=== PATIENT | female | born 1965 | race Caucasian/White ===

== ENCOUNTER 2018-03-17 09:55 | Inpatient (IN) | payer BC ==
[2018-03-17] MEDS ORDERED: HYDROMORPHONE HCL INJ/PF 2 MG/ML AMPULE IV ONE (10:10)
[2018-03-17] MEDS ORDERED: METOCLOPRAMIDE HCL INJ/PF 10 MG/2 ML SDV IV ONE (10:10)
--- NOTE | 2018-03-17 10:12 | ER Document Report ---
ED Medical Screen (RME) - General Chief Complaint: Abdominal Pain Stated Complaint: ABDOMINAL PAIN Time Seen by Provider: 03/17/18 10:08 Mode of Arrival: Ambulatory Information source: Patient Notes: 52-year-old female no previous abdominal surgeries presents with complaints of right lower quadrant abdominal pain that started this morning associated I have greeted and performed a rapid initial assessment of this patient. A comprehensive ED assessment and evaluation of the patient, analysis of test results and completion of the medical decision making process will be conducted by additional ED providers. PHYSICAL EXAMINATION: GENERAL: Well-appearing, well-nourished and in moderate acute distress. HEAD: Atraumatic, normocephalic. EYES: Pupils equal round extraocular movements intact, conjunctiva are normal. ENT: Nares patent NECK: Normal range of motion LUNGS: No respiratory distress Musculoskeletal: Normal range of motion NEUROLOGICAL: Normal speech, normal gait. PSYCH: Normal mood, normal affect. SKIN: Warm, Dry, normal turgor, no rashes or lesions noted. TRAVEL OUTSIDE OF THE [place] IN LAST 30 DAYS: No - Related Data Allergies/Adverse Reactions: No Known Allergies Allergy (Unverified 03/17/18 09:58) Physical Exam - Vital signs Vitals: Temp Pulse Resp BP Pulse Ox 97.9 F 74 16 134/70 H 99 03/17/18 10:03/17/18 10:03/17/18 10:03/17/18 10:03/17/18 10:00 Course - Vital Signs Vital signs: Temp Pulse Resp BP Pulse Ox 97.9 F 74 16 134/70 H 99 03/17/18 10:03/17/18 10:03/17/18 10:00 03/17/18 10:00 03/17/18 10:00
[2018-03-17 10:43] LABS: ABSOLUTE EOSINOPHILS # (AUTO) 0.1 10^3/uL (0.0-0.6); ABSOLUTE LYMPHOCYTES (AUTO) 0.9 10^3/uL (0.5-4.7); ABSOLUTE MONOCYTES (AUTO) 0.3 10^3/uL (0.1-1.4); ABSOLUTE NEUT (AUTO) 9.3 10^3/uL (1.7-8.2); BASOPHILS % (AUTO) 0.3 % (0-2); EOSINOPHILS % (AUTO) 1.1 % (0-6); HEMATOCRIT 45.1 % (36.0-47.0); HEMOGLOBIN 15.4 g/dL (12.0-15.5); LYMPHOCYTES % (AUTO) 8.9 % (13-45); MEAN CORPUSCULAR HGB CONC 34.1 g/dL (32.0-36.0); MEAN CORPUSCULAR VOLUME 88 fl (80-97); MONOCYTES % (AUTO) 3.2 % (3-13); PLATELET COUNT 278 10^3/uL (150-450); RED BLOOD COUNT 5.12 10^6/uL (3.72-5.28); RED CELL DISTRIBUTION WIDTH 13.4 % (11.5-14.0); SEGMENTED NEUTROPHILS % (AUTO) 86.5 % (42-78); TOTAL CELLS COUNTED % (AUTO) 100 %; WHITE BLOOD COUNT 10.7 10^3/uL (4.0-10.5)
[2018-03-17 10:57] LABS: ALANINE AMINOTRANSFERASE 22 U/L (9-52); ALBUMIN 4.6 g/dL (3.5-5.0); ALKALINE PHOSPHATASE 80 U/L (38-126); ANION GAP 12 (5-19); ASPARTATE AMINO TRANSFERASE 18 U/L (14-36); BILIRUBIN,DIRECT 0.3 mg/dL (0.0-0.4); BILIRUBIN,TOTAL 0.8 mg/dL (0.2-1.3); BLOOD UREA NITROGEN 12 mg/dL (7-20); CALCIUM 10.1 mg/dL (8.4-10.2); CARBON DIOXIDE 27 mmol/L (22-30); CHLORIDE 103 mmol/L (98-107); GLUCOSE 112 mg/dL (75-110); POTASSIUM 4.2 mmol/L (3.6-5.0); SODIUM 142.3 mmol/L (137-145); TOTAL PROTEIN 7.7 g/dL (6.3-8.2)
[2018-03-17] MEDS ORDERED: NORMAL SALINE 1000 ML 1,000 ML IV ONE ×2 (11:20→11:50)
--- NOTE | 2018-03-17 13:23 | RADIOLOGY REPORT (SQ) ---
EXAM DESCRIPTION: CT ABD/PELVIS WITH IV ORAL COMPLETED DATE/TIME: 03/17/2018 1:01 pm REASON FOR STUDY: RLQ pain COMPARISON: None. TECHNIQUE: CT scan of the abdomen and pelvis performed using helical scanning technique with dynamic intravenous contrast injection. Patient drank oral contrast. Images reviewed with lung, soft tissue , and bone windows. Reconstructed coronal and sagittal MPR images reviewed. Delayed images for evalua tion of the urinary system also acquired. All images stored on PACS. All CT scanners at this facility use dose modulation, iterative reconstruction, and/or weight based d osing when appropriate to reduce radiation dose to as low as reasonably achievable (ALARA). [facility]: Dose Right [facility]: CareDose [facility]: Dose Right [facility]: Teradose 4D [facility]: BigEvidence CONTRAST TYPE AND DOSE: contrast/concentration: Isovue 370.00 mg/ml; Total Contrast Delivered: 57.0 ml; Total Saline Delivered: 65.0 ml RENAL FUNCTION: Creatinine 0.56 RADIATION DOSE: CT Rad equipment meets quality standard of care and radiation dose reduction techniq ues were employed. CTDIvol: 5.0 - 5.7 mGy. DLP: 546 mGy-cm.. LIMITATIONS: None. FINDINGS: In the right lower quadrant, the appendix is enlarged, filled with fluid, with surrounding inflammatory change worrisome for acute appendicitis. There is adjacent reactive edema and mild wal l thickening along the inferior tip of the cecum. These findings are best shown on coronal images 20 through 33, and axial images 64-71. No abscess. No adjacent free air or fluid. Report called to Esteban Araya in the emergency room. LOWER CHEST: No significant findings. No nodules or infiltrates. LIVER: Normal size. No masses. No dilated ducts. SPLEEN: Normal size. No focal lesions. PANCREAS: No masses. No significant calcifications. No adjacent inflammation or peripancreatic fluid collections. Pancreatic duct not dilated. GALLBLADDER: No identified stones by CT criteria. No inflammatory changes to suggest cholecystitis. ADRENAL GLANDS: Right adrenal gland unremarkable. 3 x 2 cm soft tissue density nodule in the left ad renal gland with washout of contrast enhancement on the delayed images. This is likely an adenoma. When the patient's acute condition resolves, noncontrast MRI of the adrenals is recommended for follo wup RIGHT KIDNEY AND URETER: No solid masses. No significant calcifications. No hydronephrosis or hyd roureter. LEFT KIDNEY AND URETER: No solid masses. No significant calcifications. No hydronephrosis or hydr oureter. AORTA AND VESSELS: No aneurysm. No dissection. Renal arteries, SMA, celiac without stenosis. RETROPERITONEUM: No retroperitoneal adenopathy, hemorrhage or masses. BOWEL AND PERITONEAL CAVITY: Patient drank oral contrast. No free intraperitoneal air or fluid. No CT evidence of bowel obstruction APPENDIX: As above PELVIS: No mass. No free fluid. Normal bladder. Normal size female pelvic organs ABDOMINAL WALL: No masses. No hernias. BONES: No significant or acute findings. OTHER: No other significant finding. IMPRESSION: Acute appendicitis TECHNICAL DOCUMENTATION: JOB ID: [id number] Quality ID # [id number]: Final reports with documentation of one or more dose reduction techniques (e.g., Au tomated exposure control, adjustment of the mA and/or kV according to patient size, use of iterative reconstruction technique) 2010 [employer]- All Rights Reserved Reading location - IP/workstation name: [email or web address]
[2018-03-17] MEDS ORDERED: CEFOXITIN INJ 1 GM VIAL IV ONE (13:26)
--- NOTE | 2018-03-17 13:29 | ER Document Report ---
ED General - General Chief Complaint: Abdominal Pain Stated Complaint: ABDOMINAL PAIN Time Seen by Provider: 03/17/18 10:08 Mode of Arrival: Ambulatory TRAVEL OUTSIDE OF THE [place] IN LAST 30 DAYS: No - HPI Patient complains to provider of: Right-sided abdominal pain Notes: Patient coming in for complaint of breath abdominal pain nausea vomiting and diarrhea ongoing for the last 2 days. Patient denies any fevers or chills. Patient upon my evaluation is resting comfortably denies trauma. Patient states no association with food however decreased appetite. - Related Data Allergies/Adverse Reactions: No Known Allergies Allergy (Unverified 03/17/18 09:58) Past Medical History - General Information source: Patient - Social History Smoking Status: Current Every Day Smoker Chew tobacco use (# tins/day): No Frequency of alcohol use: None Drug Abuse: None Family History: Reviewed & Not Pertinent Patient has suicidal ideation: No Patient has homicidal ideation: No Renal/ Medical History: Denies: Hx Peritoneal Dialysis Past Surgical History: Reports: Hx Orthopedic Surgery Review of Systems - Review of Systems Constitutional: No symptoms reported EENT: No symptoms reported Cardiovascular: No symptoms reported Respiratory: No symptoms reported Gastrointestinal: Abdominal pain Genitourinary: No symptoms reported Female Genitourinary: No symptoms reported Musculoskeletal: No symptoms reported Skin: No symptoms reported Hematologic/Lymphatic: No symptoms reported Neurological/Psychological: No symptoms reported Physical Exam - Vital signs Vitals: Temp Pulse Resp BP Pulse Ox 97.9 F 74 16 134/70 H 99 03/17/18 10:00 03/17/18 10:00 03/17/18 10:00 03/17/18 10:00 03/17/18 10:00 Interpretation: Normal - General General appearance: Appears well, Alert - HEENT Head: Normocephalic, Atraumatic Eyes: Normal Pupils: PERRL - Respiratory Respiratory status: No respiratory distress Chest status: Nontender Breath sounds: Normal Chest palpation: Normal - Cardiovascular Rhythm: Regular Heart sounds: Normal auscultation Murmur: No - Abdominal Inspection: Normal Distension: No distension Bowel sounds: Normal Tenderness: Tender - Right lower quadrant tenderness with guarding no rebound Organomegaly: No organomegaly - Back Back: Normal, Nontender - Extremities General upper extremity: Normal inspection, Nontender, Normal color, Normal ROM , Normal temperature General lower extremity: Normal inspection, Nontender, Normal color, Normal ROM , Normal temperature, Normal weight bearing. No: Kumar's sign - Neurological Neuro grossly intact: Yes Cognition: Normal Orientation: AAOx4 [place] Coma Scale Eye Opening: Spontaneous [place] Coma Scale Verbal: Oriented [place] Coma Scale Motor: Obeys Commands Starr Coma Scale Total: 15 Speech: Normal Motor strength normal: LUE, RUE, LLE, RLE Sensory: Normal - Psychological Associated symptoms: Normal affect, Normal mood - Skin Skin Temperature: Warm Skin Moisture: Dry Skin Color: Normal Course - Re-evaluation Re-evalutation: 03/17/18 14:24 CT scan she was given size. Patient was given antibiotics the patient was notified prior to the read by Dr. Espinoza load speaking with Dr. doran is artifactual to the CAT scan. Patient otherwise stable will be sent to the OR - Vital Signs Vital signs: Temp Pulse Resp BP Pulse Ox 97.9 F 74 16 134/70 H 99 03/17/18 10:00 03/17/18 10:00 03/17/18 10:00 03/17/18 10:00 03/17/18 10:00 - Laboratory Result Diagrams: 03/17/18 10:20 03/17/18 10:20 Laboratory results interpreted by me: 03/17/18 03/17/18 03/17/18 10:20 10:20 11:50 WBC 10.7 H Seg Neutrophils % 86.5 H Lymphocytes % 8.9 L Absolute Neutrophils 9.3 H Glucose 112 H Urine Protein 30 H Urine Urobilinogen 2.0 H Ur Leukocyte Esterase SMALL H Discharge - Discharge Clinical Impression: Acute appendicitis Qualifiers: Acute appendicitis type: with localized peritonitis Qualified Code(s): - Acute appendicitis with localized peritonitis Condition: Good Disposition: ADMITTED OBSERVATION Admitting Provider: Surgicalist - [facility] Unit Admitted: OR
[2018-03-17] MEDS ORDERED: PIPERACILLIN/TAZOBACTAM 4.5 GM VIAL IV ONE (13:30)
--- NOTE | 2018-03-17 14:00 | PDOC H&P ---
History of Present Illness Admission Date/PCP: 03/17/18 Patient complains of: RLQ pain x 24 hours History of Present Illness: HECTOR SHI is a 52 year old female healtrhy with a 24 hours hx of nausea first and recently RLW pain. A CT scan A/p was done this AM and it demonstrates an acute appendicitis. Mild leukocytosis noted. Past Surgical History Past Surgical History: Reports: Orthopedic Surgery Social History Smoking Status: Current Every Day Smoker Frequency of Alcohol Use: Rare Drugs: None Family History Family History: Reviewed & Not Pertinent Parental Family History Reviewed: No Children Family History Reviewed: No Sibling(s) Family History Reviewed.: No Medication/Allergy Allergies/Adverse Reactions: No Known Allergies Allergy (Unverified 03/17/18 09:58) Physical Exam Vital Signs: Temp Pulse Resp BP Pulse Ox 97.9 F 74 16 134/70 H 99 03/17/18 10:00 03/17/18 10:00 03/17/18 10:00 03/17/18 10:00 03/17/18 10:00 Intake & Output 03/16/18 03/17/18 03/18/18 06:59 06:59 06:59 Weight 52.8 kg Results Laboratory Results: 03/17/18 10:20 03/17/18 10:20 03/17/18 03/17/18 03/17/18 10:20 10:20 10:20 WBC 10.7 H RBC 5.12 Hgb 15.4 Hct 45.1 MCV 88 MCH 30.0 MCHC 34.1 RDW 13.4 Plt Count 278 Seg Neutrophils % 86.5 H Lymphocytes % 8.9 L Monocytes % 3.2 Eosinophils % 1.1 Basophils % 0.3 Absolute Neutrophils 9.3 H Absolute Lymphocytes 0.9 Absolute Monocytes 0.3 Absolute Eosinophils 0.1 Absolute Basophils 0.0 Sodium 142.3 Potassium 4.2 Chloride 103 Carbon Dioxide 27 Anion Gap 12 BUN 12 Creatinine 0.56 Est GFR ( Amer) > 60 Est GFR (Non-Af Amer) > 60 Glucose 112 H Calcium 10.1 Total Bilirubin 0.8 AST 18 ALT 22 Alkaline Phosphatase 80 Total Protein 7.7 Albumin 4.6 Lipase 42.8 Impressions: Abdomen/Pelvis CT 03/17/18 10:10 IMPRESSION: Acute appendicitis Assessment & Plan - Diagnosis (1) Acute appendicitis Qualifiers: Acute appendicitis type: with localized peritonitis - Plan Summary Plan Summary: Acute appendicitis, not ruptured on CT scan Mild leukocytosis (10.7) RLQ abdominal pain P/ Laparoscopic appendectomy, possible open Procedure, risks, benefits, complications explained to the patient, she understands all of those, her questions were answered, and she decided to proceed today.
[2018-03-17 14:12] LABS: APPEARANCE,URINE SLIGHTLY-CLOUDY; BILIRUBIN,URINE NEGATIVE (NEGATIVE); GLUCOSE, URINE NEGATIVE (NEGATIVE); KETONES,URINE NEGATIVE (NEGATIVE); LEUKOCYTE ESTERASE,URINE SMALL (NEGATIVE); NITRITE,URINE NEGATIVE (NEGATIVE); PROTEIN,URINE 30 mg/dL (NEGATIVE); URINE SPECIFIC GRAVITY 1.023
[2018-03-17 14:14] LABS: COLOR,URINE DARK YELLOW
[2018-03-17] MEDS ORDERED: GLYCOPYRROLATE 1 MG/5 ML SYRINGE ONE (14:29)
[2018-03-17] MEDS ORDERED: VECURONIUM BROMIDE INJ 10 MG VIAL IV ONE (14:29)
[2018-03-17] MEDS ORDERED: PHENYLEPHRINE HCL INJ/PF 10 MG/1 ML SDV ONE (14:29)
[2018-03-17] MEDS ORDERED: NEOSTIGMINE METHYLSULFATE 10 MG/10 ML VIAL ONE (14:29)
[2018-03-17] MEDS ORDERED: SUCCINYLCHOLINE CHLORIDE INJ 200 MG/10 ML VIAL ONE (14:29)
[2018-03-17] MEDS ORDERED: MIDAZOLAM 2 MG/2 ML INJ ONE ×2 (15:16→15:43)
[2018-03-17] MEDS ORDERED: FENTANYL CITRATE INJ/PF 100 MCG/2 ML AMPUL ONE (15:42)
[2018-03-17] MEDS ORDERED: LIDOCAINE 2% INJ-PF (20 MG/ML) 10 ML AMPUL ONE (15:42)
[2018-03-17] MEDS ORDERED: PROPOFOL INJ 200 MG/20 ML VIAL IV ONE (15:43)
[2018-03-17] MEDS ORDERED: ACETAMINOPHEN 0 MG/0 ML RTUPB IV ONE (15:43)
[2018-03-17] MEDS ORDERED: DEXAMETHASONE SOD PHOSPHATE INJ 4 MG/1 ML VIAL ONE (15:43)
[2018-03-17] MEDS ORDERED: BUPIVACAINE HCL 0.5%-EPI 1:200000 INJ/PF 30 ML VIAL ONE (15:47)
[2018-03-17] MEDS ORDERED: ONDANSETRON HCL INJ/PF 4 MG/2 ML SDV IV PRN (16:38)
[2018-03-17] MEDS ORDERED: PROMETHAZINE HCL INJ 25 MG/1 ML VIAL IV PRN ×3 (16:38→17:55)
[2018-03-17] MEDS ORDERED: DIPHENHYDRAMINE HCL 50 MG/ML VIAL IV PRN (16:38)
[2018-03-17] MEDS ORDERED: MORPHINE SULFATE 10 MG/ML INJ IV PRN (16:38)
[2018-03-17] MEDS ORDERED: MEPERIDINE HCL/PF INJ 25 MG/1 ML DISP.SYRIN IV PRN (16:38)
[2018-03-17] MEDS ORDERED: FENTANYL CITRATE INJ/PF 100 MCG/2 ML AMPUL IV PRN ×3 (16:38)
[2018-03-17] MEDS: FENTANYL CITRATE INJ/PF 100 MCG/2 ML AMPUL ONE ×2 (17:25→17:46)
--- NOTE | 2018-03-17 17:26 | Operative Report ---
Nonrecallable Operative Report DATE OF SURGERY: 03/17/18 PREOPERATIVE DIAGNOSIS: acute appendicitis POSTOPERATIVE DIAGNOSIS: acute, perforated, appendicitis OPERATION: laparoscopic appendectomy SURGEON: LUIS ALBERTO DUNCAN ANESTHESIA: GA - plus 20 mL 1% lidocaine with epineprine TISSUE REMOVED OR ALTERED: appendix, peritoneal fluid for culture COMPLICATIONS: none ESTIMATED BLOOD LOSS: < 5 mL INTRAOPERATIVE FINDINGS: acutely inflamed appendix with distal end perforation PROCEDURE: see dictation
[2018-03-17] MEDS ORDERED: NORMAL SALINE 1000 ML 1,000 ML IV PRN (17:52)
[2018-03-17] MEDS ORDERED: KETOROLAC TROMETHAMINE INJ/PF 30 MG/1 ML SDV ONE (18:04)
[2018-03-17] MEDS ORDERED: ACETAMINOPHEN 1,000 MG/100 ML RTUPB IV ONE (18:05)
--- NOTE | 2018-03-17 18:50 | OPERATIVE REPORT E ---
Operative Report NAME: HECTOR SHI : 1965 AGE: 52Y DATE OF SURGERY: 03/17/2018 ROOM: ED14 PREOPERATIVE DIAGNOSIS: ACUTE APPENDICITIS. POSTOPERATIVE DIAGNOSIS: ACUTE APPENDICITIS WITH PERFORATION. OPERATION: SURGEON: LUIS ALBERTO DUNCAN M.D. COMMUNICATIONS ANALYST: None. ESTIMATED BLOOD LOSS: Less than 5 mL. COMPLICATIONS: None. ANESTHESIA: General plus 30 mL of 1% Lidocaine with epinephrine. FLUIDS: 1000. URINE OUTPUT: Not available. DRAINS: A 15 Estonian Ayaz drain. INDICATION AND FINDINGS: This is a 52-year-old female smoker with a history of abdominal discomfort for 24 hours with intense nausea. Today, she developed right lower quadrant abdominal pain. A CT scan of the abdomen and pelvis was done, revealing acute appendicitis with fluid around the appendix. The decision was made to take the patient to surgery today to undergo laparoscopic appendectomy. DESCRIPTION OF PROCEDURE: The procedure was one in the operating room. Patient was placed in the supine position. General anesthesia was induced by endotracheal intubation. The abdomen was shaved, prepped and draped in the usual fashion. The incision was made just above the umbilicus; the skin was tented with towel clips, and a 5 mm port with Optiview adaptor and scope were inserted through the abdominal wall into the peritoneal cavity. CO2 pneumoperitoneum was established. Under direct visualization, a 5 mm port was inserted in the right upper quadrant under direct visualization. The 5 mm port in the umbilicus was removed and replaced with a 12 mm port. A 5 mm port was placed in the left lower quadrant of the abdomen. The patient was placed in a deep Trendelenburg position with the right side elevated. Evaluation of the right upper quadrant revealed the presence of a moderate amount of purulent fluid as well as fibrinous material. There was a moderate amount of fibrinous material surrounding the terminal ileum and the greater omentum. The appendix was identified to be edematous but not ruptured with a perforation at the distal end. The appendix was then dissected gently from the surrounding intra-abdominal organs, stretched upward. The base was evaluated and edema of the base was noted as well. At this point, the decision was made to amputate the appendix with a small sleeve of cecum. This was done with an endo-SPENSER laparoscopic stapler with a blue load. The appendix was then extracted from the peritoneal cavity with an Endo bag and the pneumoperitoneum was established. The staple line was examined and found to be intact. The peritoneal cavity was then irrigated with a total of 3 L of warm normal saline which was then fully aspirated. Under direct visualization, using a fascia closure device, the umbilical fascial defect was closed with a bnhbkl-so-nibeq 0 Vicryl suture. The suture was left untied and a 15 Estonian round Ayaz drain was inserted through the umbilical port, pulled outside the abdominal cavity through the left lower quadrant port site, and placed in the right lower quadrant. At this point, the trocar was released. The instruments were removed. The ports were extracted and the drain sutured to the skin using a 2-0 nylon suture. The umbilical defect was closed with the [id number]-km-vozlt 0 Vicryl suture previously placed. All skin incisions were closed with 4-0 Vicryl running subcuticular suture with Dermabond. The patient tolerated the procedure well, transferred to the recovery room, extubated, in satisfactory condition. DICTATING PHYSICIAN: LUIS ALBERTO DUNCAN M.D. [id number] Y#: [id number] ID: [id number] JOB#: [id number] ACCT: [id number] cc:LUIS ALBERTO DUNCAN M.D. > MTDD
--- NOTE | 2018-03-17 18:52 | EKG REPORT ---
SEVERITY:- NORMAL ECG - SINUS RHYTHM : Confirmed by: Satnam Haas MD 17-Mar-2018 18:51:36
[2018-03-17] MEDS: MORPHINE SULFATE 10 MG/ML INJ IV PRN ×2 (19:28→22:03)
[2018-03-17] MEDS: PIPERACILLIN SODIUM/TAZOBACTAM 4.5 GM in NORMAL SALINE 100 ML IV SCH (22:00)
[2018-03-18] MEDS: MORPHINE SULFATE 10 MG/ML INJ IV PRN ×2 (00:47→06:48)
[2018-03-18] MEDS: PIPERACILLIN SODIUM/TAZOBACTAM 4.5 GM in NORMAL SALINE 100 ML IV SCH ×4 (03:48→21:21)
[2018-03-18 07:39] LABS: HEMATOCRIT 34.1 % (36.0-47.0); MEAN CORPUSCULAR HEMOGLOBIN 30.4 pg (27.0-33.4); MEAN CORPUSCULAR VOLUME 89 fl (80-97); PLATELET COUNT 198 10^3/uL (150-450); RED BLOOD COUNT 3.82 10^6/uL (3.72-5.28); RED CELL DISTRIBUTION WIDTH 13.8 % (11.5-14.0); WHITE BLOOD COUNT 14.5 10^3/uL (4.0-10.5)
[2018-03-18 07:40] LABS: HEMOGLOBIN 11.6 g/dL (12.0-15.5)
[2018-03-18 07:50] LABS: ANION GAP 8 (5-19); BLOOD UREA NITROGEN 9 mg/dL (7-20); CALCIUM 8.4 mg/dL (8.4-10.2); CARBON DIOXIDE 26 mmol/L (22-30); CHLORIDE 108 mmol/L (98-107); GLUCOSE 117 mg/dL (75-110); POTASSIUM 4.1 mmol/L (3.6-5.0); SODIUM 141.5 mmol/L (137-145)
[2018-03-18] MEDS: ENOXAPARIN SODIUM INJ 40 MG/0.4 ML DISP.SYRIN SUBCUT SCH (09:26)
--- NOTE | 2018-03-18 10:43 | PDOC PROGRESS REPORT ---
Subjective Progress Note for:: 03/18/18 Subjective:: comfortable, tolerating po well Reason For Visit: ACUTE APPENDICITIS Physical Exam Vital Signs: Temp Pulse Resp BP Pulse Ox 97.8 F 54 L 20 98/51 L 100 03/18/18 07:29 03/18/18 07:29 03/18/18 07:29 03/18/18 07:29 03/18/18 07:29 Intake & Output 03/17/18 03/18/18 03/19/18 06:59 06:59 06:59 Intake Total 2825 Output Total 415 Balance 2410 Weight 52.8 kg General appearance: PRESENT: no acute distress Respiratory exam: PRESENT: clear to auscultation alfredo Cardiovascular exam: PRESENT: RRR GI/Abdominal exam: PRESENT: normal bowel sounds, soft, other - left lower quadrant Ayaz drain with serosanguinous fluid; all wounds are c/d/i Results Laboratory Results: 03/18/18 06:53 03/18/18 06:53 03/18/18 03/18/18 06:53 06:53 WBC 14.5 H RBC 3.82 Hgb 11.6 L D Hct 34.1 L MCV 89 MCH 30.4 MCHC 34.0 RDW 13.8 Plt Count 198 Sodium 141.5 Potassium 4.1 Chloride 108 H Carbon Dioxide 26 Anion Gap 8 BUN 9 Creatinine 0.56 Est GFR ( Amer) > 60 Est GFR (Non-Af Amer) > 60 Glucose 117 H Calcium 8.4 Impressions: Abdomen/Pelvis CT 03/17/18 10:10 IMPRESSION: Acute appendicitis Assessment & Plan - Diagnosis (1) Acute appendicitis Qualifiers: Acute appendicitis type: with localized peritonitis Is this a current diagnosis for this admission?: Yes (2) Acute perforated appendicitis Is this a current diagnosis for this admission?: Yes - Plan Summary Plan Summary: A/ POD#1 after laparoscopic appendectomy for perforated acute appendicitis VSS, AF WBC increased to 14K Cx of peritoneal fluid pending PE unremarkable patient tolerating po well P/ Heplock IVF Patient to remain hospitalized as her WBC has increased Antibiotics to be tailored once peritoneal fluid cx are available change to po pain medications
[2018-03-18] MEDS ORDERED: TRAMADOL HCL 50 MG TABLET PO PRN (10:44)
[2018-03-18] MEDS ORDERED: ACETAMINOPHEN 325 MG TABLET PO PRN (10:45)
[2018-03-18] MEDS: KETOROLAC TROMETHAMINE 10 MG TABLET PO PRN ×2 (11:54→17:49)
[2018-03-18 20:09] VITALS: BP 101/45
[2018-03-19] MEDS: KETOROLAC TROMETHAMINE 10 MG TABLET PO PRN ×2 (00:06→07:32)
[2018-03-19] MEDS: PIPERACILLIN SODIUM/TAZOBACTAM 4.5 GM in NORMAL SALINE 100 ML IV SCH ×2 (03:34→08:50)
[2018-03-19 06:15] LABS: HEMATOCRIT 32.5 % (36.0-47.0); MEAN CORPUSCULAR HEMOGLOBIN 30.2 pg (27.0-33.4); MEAN CORPUSCULAR HGB CONC 33.8 g/dL (32.0-36.0); MEAN CORPUSCULAR VOLUME 89 fl (80-97); PLATELET COUNT 185 10^3/uL (150-450); RED BLOOD COUNT 3.64 10^6/uL (3.72-5.28); RED CELL DISTRIBUTION WIDTH 13.5 % (11.5-14.0); WHITE BLOOD COUNT 8.8 10^3/uL (4.0-10.5)
[2018-03-19 06:34] LABS: ANION GAP 8 (5-19); BLOOD UREA NITROGEN 15 mg/dL (7-20); CALCIUM 8.2 mg/dL (8.4-10.2); CARBON DIOXIDE 27 mmol/L (22-30); CHLORIDE 107 mmol/L (98-107); GLUCOSE 91 mg/dL (75-110); POTASSIUM 3.6 mmol/L (3.6-5.0); SODIUM 141.8 mmol/L (137-145)
[2018-03-19] MEDS: ENOXAPARIN SODIUM INJ 40 MG/0.4 ML DISP.SYRIN SUBCUT SCH (08:51)
--- NOTE | 2018-03-19 09:10 | PDOC PROGRESS REPORT ---
Subjective Progress Note for:: 03/19/18 Subjective:: comfortable, bowel function returned, diet tolerated Reason For Visit: ACUTE APPENDICITIS Physical Exam Vital Signs: Temp Pulse Resp BP Pulse Ox 97.5 F 64 16 101/45 L 99 03/18/18 20:00 03/18/18 20:00 03/18/18 20:00 03/18/18 20:00 03/18/18 20:00 Intake & Output 03/18/18 03/19/18 03/20/18 06:59 06:59 06:59 Intake Total 2825 2610 Output Total 415 45 Balance 2410 2565 Weight 52.8 kg 57.062 kg General appearance: PRESENT: no acute distress Respiratory exam: PRESENT: clear to auscultation alfredo Cardiovascular exam: PRESENT: RRR GI/Abdominal exam: PRESENT: distended - slightly distended, soft, other - incisions C/D/I; LLQ Ayaz drain with serosanguinous fluid Results Laboratory Results: 03/19/18 05:52 03/19/18 05:52 03/19/18 03/19/18 05:52 05:52 WBC 8.8 RBC 3.64 L Hgb 11.0 L Hct 32.5 L MCV 89 MCH 30.2 MCHC 33.8 RDW 13.5 Plt Count 185 Sodium 141.8 Potassium 3.6 Chloride 107 Carbon Dioxide 27 Anion Gap 8 BUN 15 Creatinine 0.67 Est GFR ( Amer) > 60 Est GFR (Non-Af Amer) > 60 Glucose 91 Calcium 8.2 L Impressions: Abdomen/Pelvis CT 03/17/18 10:10 IMPRESSION: Acute appendicitis Assessment & Plan - Diagnosis (1) Acute appendicitis Qualifiers: Acute appendicitis type: with localized peritonitis Is this a current diagnosis for this admission?: Yes (2) Acute perforated appendicitis Is this a current diagnosis for this admission?: Yes - Plan Summary Plan Summary: A/ s/p laparoscopic appendectomy for acute, perforated appendicitis POD#2 VSS, AF WBC normal Diet tolerated Bowel function returned PE unremarkable Ayaz drain output 45 mL past 24 hrs P/ Home today F/u with our General Surgery office (APRIL Barker) or the General Surgeon' s office of the patient home town for drain removal in 1 week Ayaz drain management: empty bulb daily, record output, bring record to office Sponge bath only until drain is in place then can shower; bath in 2 weeks after surgery date No wound care needed Resume diet and home meds No smoking x 6 weeks after surgery (should stop altogether) For peritoneal fluid growing E. Coli take : Cipro 500 mg po BIX x 10 days and Flagyl 500 mg po TID x 10 days While on oral antibiotics: take yogurt 1 cup daily Multivitamins 1 tab daily Probiotic 2 cups twice a day Tylenol/Aleve as needed for pain (follow instructions inside box)
--- NOTE | 2018-03-19 09:34 | DISCHARGE SUMMARY E ---
Discharge Summary NAME: HECTOR SHI : 1965 AGE: 52Y ADMITTED: 03/17/2018 DISCHARGED: 03/19/2018 FINAL DIAGNOSIS: Perforated acute appendicitis. PROCEDURE: Laparoscopic appendectomy on 03/17/2018. COMPLICATIONS: None. HOSPITAL COURSE: The patient is a 52-year-old female, heavy smoker, who presented to the Emergency Room with right lower quadrant pain. A CAT scan was done revealing the presence of acute appendicitis. The patient was taken to surgery on the same day and underwent uneventful laparoscopic appendectomy. During the procedure it was noted that the appendix was perforated with some cloudy fluid in the abdomen. This was sent for culture which was positive for E. coli. The patient was then transferred to the floor and continued on antibiotics, IV Zosyn. The diet was advanced. On the day of discharge, the patient was afebrile, she had no complaints, she was able to tolerate p.o. well, bowel function returned. Exam was unremarkable with abdomen soft. No ascites or tenderness. Positive bowel sounds. Surgical incision was clean, dry, and intact. The patient had a Aayz drain in the right lower quadrant which was draining about 45 mL of serosanguineous fluid. DISCHARGE ORDERS: The patient was discharged on 03/19/2018. She was given a follow-up appointment in our clinic or with her hometown general surgical clinic in about a week for drain removal. She was instructed to empty the Ayaz drain bulb daily, to record the output, and to bring the output record to the clinic. Cipro 500 mg p.o. b.i.d. for 10 days, Flagyl 500 mg p.o. t.i.d. for 10 days, Tylenol and/or Aleve as needed for pain. Yogurt 1 cup daily, probiotic 2 tabs twice a day, and multivitamin 1 tab twice a day while she is on antibiotics. The patient is instructed on sponge bath only until the drain is removed. Afterward the patient can shower and bathe in 2 weeks. Activity as tolerated. The patient can go to work as long as the drain is removed with no limitations and no wound care needed. DICTATING PHYSICIAN: LUIS ALBERTO DUNCAN M.D. [id number] Y#: [id number] ID: [id number] JOB#: [id number] ACCT: [id number] cc:LUIS ALBERTO DUNCAN M.D. >
== END 2018-03-19 10:45 | disposition home or self-care (01) | DRG 340 ==
LOC: ER 09:55 → EH 14:25 → OBSVTOIN 14:25 → 5 18:30
PROVIDERS: ADMIT Surgery; ATTEND Surgery
PROC: 0DTJ4ZZ Resection of Appendix, Percutaneous Endoscopic Approach (ICD-10-PCS; principal; 2018-03-17 15:00)
DX: K35.2 Acute appendicitis with generalized peritonitis (principal); B96.20 Unspecified Escherichia coli [E. coli] as the cause of diseases classified elsewhere; F17.200 Nicotine dependence, unspecified, uncomplicated
CPT/HCPCS: 36415; 74177; 80048; 80053; 81001; 83690; 840; 85025; 85027; 87040; 87070; 87075; 87077; 87186; 87205; 88304; 93005; 93010; 96361; 96365; 96375; 99285; J0131; J0330; J1100; J1170; J1885; J2250; J2270; J2370; J2543; J2550; J2704; J2765; J3010; J3490; J7030